=== PATIENT | male | born 1980 | race Caucasian/White ===

== ENCOUNTER 2022-07-26 16:54 | Emergency (ER) | payer MEDICARE, MEDICAID ==
[~2022-07-26] VITALS: Ht 182.9 cm; Wt 109.0 kg
[2022-07-26 17:45] LABS: CLARITY,URINE CLEAR (Clear); COLOR,URINE YELLOW (Yellow); GLUCOSE, URINE NEGATIVE (Neg); KETONES,URINE NEGATIVE (Neg); LEUKOCYTE ESTERASE ,URINE NEGATIVE (Neg); NITRITES, URINE NEGATIVE (Neg); OCCULT BLOOD,URINE TRACE-INTACT (Neg); PROTEIN,URINE NEGATIVE (Neg); UROBILINOGEN,URINE 0.2 E.U/dL (0.2-1.0)
[2022-07-26 17:48] LABS: BASOPHILS % (AUTO) 0.6 % (0-1); EOSINOPHILS # (AUTO) 0.3 X10'3 (0-0.9); EOSINOPHILS % (AUTO) 4.2 % (0-6); HEMATOCRIT 44.4 % (42.0-52.0); HEMOGLOBIN 15.6 g/dl (14.0-17.9); LYMPHOCYTES # (AUTO) 3.3 X10'3 (1.1-4.8); LYMPHOCYTES % (AUTO) 41.5 % (21-51); MEAN CORPUSCULAR HEMOGLOBIN 31.2 PG (27.0-31.0); MEAN CORPUSCULAR HGB CONC 35.1 g/dL (33.0-36.5); MEAN CORPUSCULAR VOLUME 88.9 FL (78-98); MEAN PLATELET VOLUME 7.7 FL (7.4-10.4); MONOCYTES # (AUTO) 0.8 X10'3 (0-0.9); NEUTROPHILS # (AUTO) 3.5 X10'3 (1.8-7.7); NEUTROPHILS % (AUTO) 43.7 % (42-75); PLATELET COUNT 247 X10'3 (140-440); RED BLOOD COUNT 4.99 X10'6 (4.70-6.10); RED CELL DISTRIBUTION WIDTH 13.7 % (11.5-14.5)
[2022-07-26 17:48] LABS: UA COLLECTION TYPE CLN CATCH MIDSTREAM
[2022-07-26 17:50] LABS: BACTERIA,URINE NONE SEEN /HPF (Neg); RBC,URINE 0-2 /HPF (0-2); WBC,URINE NONE SEEN /HPF (0-4)
[2022-07-26 17:51] LABS: MUCUS STRANDS NONE SEEN /LPF (Neg); SQUAMOUS EPITHELIAL CELL,UR NONE SEEN /LPF (FEW)
[2022-07-26 18:03] LABS: ALANINE AMINOTRANSFERASE 34 U/L (12-78); ALBUMIN 3.9 G/DL (3.4-5.0); ALBUMIN/GLOBULIN RATIO 1.1 (1.1-1.5); ALKALINE PHOSPHATASE 57 IU/L (46-116); ANION GAP 7 (8-16); ASPARTATE AMINO TRANSFERASE 27 U/L (10-37); BILIRUBIN,TOTAL 0.2 MG/DL (0.1-1.0); BLOOD UREA NITROGEN 16 MG/DL (7-18); BUN/CREATININE RATIO 13.7 (5.4-32.0); CALCIUM 8.9 MG/DL (8.5-10.1); CHLORIDE 101 MMOL/L (99-107); CREATININE 1.17 MG/DL (0.60-1.10); GLUCOSE 106 MG/DL (70-104); LIPASE 152 U/L (73-393); POTASSIUM 3.6 MMOL/L (3.5-5.1); SODIUM 137 MMOL/L (135-145); TOTAL CARBON DIOXIDE 29.5 MMOL/L (24-32); TOTAL PROTEIN 7.4 G/DL (6.4-8.2); eGFR 69 ML/MIN
[2022-07-26] MEDS ORDERED: ketorolac trometh. 30mg/ml inj. IM ONE (23:10)
[2022-07-26] MEDS ORDERED: normal saline 1000ML IV soln IVB ONE (23:20)
[2022-07-26] MEDS ORDERED: metoclopramide 5 mg/ml inj IV ONE (23:20)
[2022-07-26] MEDS ORDERED: diphenhydrAMINE 50 mg/ml inj IV ONE (23:20)
[2022-07-27 00:10] LABS: H PYLORI ANTIBODY NEGATIVE (Neg)
[2022-07-27] MEDS ORDERED: SUCR1TAB PO (00:19)
[2022-07-27] MEDS ORDERED: OMEP40CA21 PO (00:19)
[2022-07-27 00:40] VITALS: BP 119/70
== END 2022-07-27 00:59 | disposition home or self-care (01) ==
LOC: ER 16:55
DX: R10.9 Unspecified abdominal pain (principal); R11.2 Nausea with vomiting, unspecified; R51.9 Headache, unspecified; N18.9 Chronic kidney disease, unspecified; Z79.899 Other long term (current) drug therapy
CPT/HCPCS: 36415; 80053; 81001; 83690; 85025; 86677; 96361; 96372; 96374; 96375; 99284; J1200; J1885; J2765; J7030

== ENCOUNTER 2022-12-21 19:40 | Emergency (ER) | payer MEDICAID, MEDICARE ==
[~2022-12-21] VITALS: Ht 182.9 cm; Wt 105.0 kg
[~2022-12-21 19:40] MED LIST: SUCR1TAB PO
[2022-12-21 19:47] VITALS: BP 148/88; PULSE 58; RESP 16; TEMP 97.9; O2SAT 97
[2022-12-21] MEDS ORDERED: CLIN-142 PO (22:00)
[2022-12-21] MEDS ORDERED: clindamycin 150mg capsule PO ONE (22:00)
== END 2022-12-21 22:06 | disposition home or self-care (01) ==
LOC: ER 19:40
DX: K08.89 Other specified disorders of teeth and supporting structures (principal); N18.9 Chronic kidney disease, unspecified
CPT/HCPCS: 99283

== ENCOUNTER 2023-09-05 21:06 | Emergency (ER) | payer MEDICARE, MEDICAID ==
[~2023-09-05] VITALS: Ht 182.9 cm; Wt 95.5 kg
[2023-09-05 21:12] VITALS: BP 131/82; PULSE 97; RESP 18; O2SAT 97
[2023-09-05] MEDS: TETanus/Pertussis (Acell)/Diphther VAC/PF (Tdap-Adult) 0.5ml syringe IMVAC ONE (22:25)
[2023-09-05] MEDS: LIDOcaine 1% W/epiNEPHrine 1:100,000 20ml vial SQ ONE (22:26)
[2023-09-05] MEDS ORDERED: DOXY-457 PO (22:44)
[2023-09-05] MEDS ORDERED: CEPH-585 PO (22:44)
[2023-09-05] MEDS: cephalexin 500mg capsule PO ONE (23:13)
[2023-09-05] MEDS: DOXYCYCLINE 100MG CAPSULE PO STA (23:13)
[2023-09-05 23:16] VITALS: TEMP 98.4
== END 2023-09-05 23:17 | disposition home or self-care (01) ==
LOC: ER 21:06
DX: L02.415 Cutaneous abscess of right lower limb (principal); N18.9 Chronic kidney disease, unspecified
CPT/HCPCS: 10060; 90471; 90715; 99283; J3490; A6449

== ENCOUNTER 2023-09-21 04:43 | Emergency (ER) | payer MEDICAID ==
[~2023-09-21] VITALS: Ht 175.3 cm; Wt 86.4 kg
[2023-09-21] MEDS ORDERED: ceFAZolin/D5W- 1GM premix 50 ML IV SCH (05:50)
[2023-09-21 06:46] LABS: BASOPHILS # (AUTO) 0.1 X10'3 (0-0.2); BASOPHILS % (AUTO) 0.8 % (0-1); EOSINOPHILS # (AUTO) 0.3 X10'3 (0-0.9); EOSINOPHILS % (AUTO) 1.7 % (0-6); HEMATOCRIT 42.1 % (42.0-52.0); HEMOGLOBIN 14.6 g/dl (14.0-17.9); LYMPHOCYTES # (AUTO) 2.1 X10'3 (1.1-4.8); LYMPHOCYTES % (AUTO) 13.6 % (21-51); MEAN CORPUSCULAR HEMOGLOBIN 30.7 PG (27.0-31.0); MEAN CORPUSCULAR HGB CONC 34.6 g/dL (33.0-36.5); MEAN CORPUSCULAR VOLUME 88.7 FL (78-98); MEAN PLATELET VOLUME 7.5 FL (7.4-10.4); MONOCYTES # (AUTO) 1.1 X10'3 (0-0.9); MONOCYTES % (AUTO) 6.8 % (2-12); NEUTROPHILS % (AUTO) 77.1 % (42-75); PLATELET COUNT 310 X10'3 (140-440); RED BLOOD COUNT 4.75 X10'6 (4.70-6.10); RED CELL DISTRIBUTION WIDTH 13.5 % (11.5-14.5); WHITE BLOOD COUNT 15.6 X10'3 (4.5-11.0)
[2023-09-21] MEDS: ceFAZolin/D5W- 1GM premix 50 ML IV SCH (06:48)
[2023-09-21 06:51] LABS: ALBUMIN 3.7 G/DL (3.4-5.0); ANION GAP 5 (8-16); BLOOD UREA NITROGEN 12 MG/DL (7-18); BUN/CREATININE RATIO 12.1 (10.0-20.0); CALCIUM 8.7 MG/DL (8.5-10.1); CHLORIDE 103 MMOL/L (99-107); CREATININE 0.99 MG/DL (0.60-1.10); ETHANOL < 10 MG/DL (<10); GLUCOSE 102 MG/DL (70-104); POTASSIUM 3.3 MMOL/L (3.5-5.1); SODIUM 139 MMOL/L (135-145); TOTAL CARBON DIOXIDE 31.2 MMOL/L (24-32); eCRCL 98 ML/MIN; eGFR 83 ML/MIN
[2023-09-21] MEDS: normal saline 1000ML IV soln IVB ONE (07:07)
[2023-09-21] MEDS: HYDROmorphone 1 mg/ml syringe IV ONE (07:07)
[2023-09-21] MEDS: TETanus/Pertussis (Acell)/Diphther VAC/PF (Tdap-Adult) 0.5ml syringe IMVAC ONE (07:09)
[2023-09-21 09:40] VITALS: BP 156/86; PULSE 68; RESP 16; TEMP 98.7; O2SAT 100
== END 2023-09-21 09:43 | disposition short-term general hospital (02) ==
LOC: ER 04:44
DX: S02.40EA Zygomatic fracture, right side, initial encounter for closed fracture (principal); N18.9 Chronic kidney disease, unspecified; Z79.899 Other long term (current) drug therapy; Y08.89XA Assault by other specified means, initial encounter; Y93.89 Activity, other specified; Y92.89 Other specified places as the place of occurrence of the external cause; Y99.8 Other external cause status
CPT/HCPCS: 36415; 70450; 70486; 72125; 80048; 80320; 85025; 90471; 90715; 96365; 99291; J0690; J7030; L0172

== ENCOUNTER 2023-12-01 01:58 | Emergency (ER) | payer MEDICARE, MEDICAID ==
[~2023-12-01] VITALS: Ht 182.9 cm; Wt 90.9 kg
[2023-12-01 02:00] VITALS: BP 128/79; PULSE 75; RESP 15; TEMP 98; O2SAT 95
== END 2023-12-01 02:57 | disposition home or self-care (01) ==
LOC: ER 01:58
DX: H57.02 Anisocoria (principal); N18.9 Chronic kidney disease, unspecified; Z79.899 Other long term (current) drug therapy
CPT/HCPCS: 99283